=== PATIENT | male | born 1940 | race Caucasian/White ===

== ENCOUNTER → 2018-01-29 | Outpatient (CLI) | payer OTHER, BC ==
--- NOTE | 2018-01-29 09:44 | DIAGNOSTIC IMAGING REPORT ---
CHEST 2 VIEWS ROUTINE CLINICAL HISTORY: BILATERAL RALES dyspnea COMPARISON STUDY: No previous studies for comparison. FINDINGS: The bones soft tissues and hemidiaphragms are normal. The cardiomediastinal silhouette is normal. The lungs are clear. The pulmonary vasculature is normal. Mild cardiomegaly. IMPRESSION: Mild cardiomegaly. Otherwise negative study. The above report was generated using voice recognition software. It may contain grammatical, syntax or spelling errors. Electronically signed by: Power Green M.D. 01/29/2018 9:42 AM Dictated Date/Time: 01/29/2018 9:42 AM
== END | disposition home or self-care (01) ==
LOC: C.RAD1850 09:28
PROVIDERS: ATTEND Family Medicine
DX: R09.89 Other specified symptoms and signs involving the circulatory and respiratory systems (principal)

== ENCOUNTER 2022-03-01 19:12 | Inpatient (IN) ==
[2022-03-01 20:39] LABS: Basophils # (auto) 0.01 K/uL (0-0.2); Basophils % (auto) 0.2 %; Eosinophils # (auto) 0.23 K/uL (0-0.5); Eosinophils % (auto) 3.8 %; Hematocrit (blood only) 40.3 % (42-52); Hemoglobin 13.9 g/dL (14.0-18.0); Immature Granulocytes # (auto) 0.01 K/uL (0.00-0.02); Immature Granulocytes % (auto) 0.2 %; Lymphocytes # (auto) 2.33 K/uL (1.2-3.4); Mean Corpuscular Hemoglobin 30.6 pg (25-34); Mean Corpuscular Hgb Conc 34.5 g/dL (32-36); Mean Corpuscular Volume 88.8 fL (80-100); Mean Platelet Volume 9.8 fL (7.4-10.4); Monocytes # (auto) 0.54 K/uL (0.11-0.59); Monocytes % (auto) 8.8 %; Neutrophils # (auto) 3.01 K/uL (1.4-6.5); Platelet Count 170 K/uL (130-400); RDW Standard Deviation 42.3 fL (36.4-46.3); Red Blood Count 4.54 M/uL (4.7-6.1); White Blood Count 6.13 K/uL (4.8-10.8)
--- NOTE | 2022-03-01 20:47 | Emergency Department Note ---
History of Present Illness General Chief complaint: Abnormal Labs/Diagnostic Testing Stated complaint: ABNORMAL EKG Time Seen by Provider: 03/01/22 20:08 History of Present Illness 81-year-old male presents to the ED with a chief complaint of heart block. The patient was at his PCPs office for routine visit today. He was noted to have a heart block. He was sent to the hospital for evaluation. The patient denies any specific complaints. He denies any palpitations. He denies any shortness of breath. No chest pains. No lightheadedness or dizziness. I did speak with Dr. Lara, the patient's outpatient provider group, who stated that the EKG in the office showed a third-degree heart block. This reason the patient was sent here. Home Medications Medication Instructions Recorded Confirmed Type albuterol sulfate 90 mcg/actuation 2 puffs INHALATION Q4H PRN gm 06/10/19 03/01/22 History aerosol inhaler atorvastatin 10 mg tablet 10 mg PO DAILY tab 06/10/19 03/01/22 History esomeprazole magnesium 20 mg 20 mg PO DAILY PRN cap 06/10/19 03/01/22 History capsule,delayed release tadalafil 5 mg tablet 5 mg PO DAILY PRN tab 06/10/19 03/01/22 History tamsulosin 0.4 mg capsule 0.4 mg PO DAILY #30 cap 06/10/19 03/01/22 History ascorbic acid (vitamin C) 1,000 mg 1 g PO DAILY 03/01/22 03/01/22 History tablet (Vitamin C) aspirin 81 mg tablet,delayed 81 mg PO DAILY 03/01/22 03/01/22 History release (Aspirin Low Dose) cholecalciferol (vitamin D3) 125 125 mcg PO DAILY 03/01/22 03/01/22 History mcg (5,000 unit) tablet (Vitamin D3) coQ10 (ubiquinol) 200 mg capsule 200 mg PO DAILY 03/01/22 03/01/22 History triamterene 37.5 1 cap PO DAILY 03/01/22 03/01/22 History mg-hydrochlorothiazide 25 mg capsule vit C 250 mg-vit E 90 mg-zinc 40 1 tab PO BID 03/01/22 03/01/22 History mg-copper 1 [id number] capsule (PreserVision AREDS-2) Allergies Allergy/AdvReac Type Severity Reaction Status Date / Time animal dander Allergy Unknown Unknown Verified 03/01/22 20:44 bupropion Allergy Unknown Unknown Verified 03/01/22 20:44 citalopram [From Celexa] Allergy Unknown Unknown Verified 03/01/22 20:44 doxycycline Allergy Unknown Unknown Verified 03/01/22 20:44 iodine Allergy Unknown Unknown Verified 03/01/22 20:44 sildenafil [From Viagra] Allergy Unknown Unknown Verified 03/01/22 20:44 Sulfa (Sulfonamide Allergy Unknown Unknown Verified 03/01/22 20:44 Antibiotics) Past Med/Surg History Medical History (Updated 03/02/22 @ 00:28 by Juan Diego Paige DO) Elevated prostate specific antigen (PSA) Erectile dysfunction History of SCC (squamous cell carcinoma) of skin Hypertrophy of prostate Left ventricular hypertrophy Mitral valve disorder Family History (Updated 03/01/22 @ 22:11 by JOSÉ MIGUEL Daigle) Other Cancer Diabetes Dyslipidemia Hypertension Social History (Updated 03/01/22 @ 22:11 by JOSÉ MIGUEL Daigle) Smoking Status: Never smoker Hx Alcohol Use: Yes Alcohol type: wine Alcohol Intake Frequency: 2-3 x/Week Hx Substance Use: No Preferred Language: [place] Islander Feels Safe at Home: Yes Review of Systems A total of 10 systems reviewed and were otherwise negative Physical Exam Vital Signs Vital Signs - 24 hr 03/01/22 19:18 03/01/22 20:19 03/01/22 20:29 Temperature 36.8 C Temperature Source Temporal Artery Scan Pulse Rate 58 L 46 L Pulse Rate [Apical] 64 Pulse Rate from SpO2 Sensor 51 L Respiratory Rate 18 12 20 Respiratory Effort / Characteristics Non-Labored Non-Labored Spontaneous Respiratory Depth Normal Normal Respiratory Pattern Regular Blood Pressure 221/88 H Blood Pressure Mean 132 Blood Pressure Position Sitting Pulse Oximetry 97 95 96 Oxygen Delivery Method Room Air Room Air Sepsis Recent Fever Within 48 Hours No Sepsis New/Unexplained Change in Mental Status No Sepsis Action Taken by Nursing No Action Required 03/01/22 20:30 03/01/22 20:32 03/01/22 21:00 Temperature Temperature Source Pulse Rate 54 L 57 L 45 L Pulse Rate [Apical] Pulse Rate from SpO2 Sensor 52 L 53 L 47 L Respiratory Rate 14 14 19 Respiratory Effort / Characteristics Respiratory Depth Respiratory Pattern Blood Pressure 225/79 H 183/90 H Blood Pressure Mean 127 121 Blood Pressure Position Pulse Oximetry 95 93 95 Oxygen Delivery Method Sepsis Recent Fever Within 48 Hours Sepsis New/Unexplained Change in Mental Status Sepsis Action Taken by Nursing 03/01/22 21:01 Temperature Temperature Source Pulse Rate 49 L Pulse Rate [Apical] Pulse Rate from SpO2 Sensor 49 L Respiratory Rate 16 Respiratory Effort / Characteristics Respiratory Depth Respiratory Pattern Blood Pressure 183/90 H Blood Pressure Mean 121 Blood Pressure Position Pulse Oximetry 96 Oxygen Delivery Method Sepsis Recent Fever Within 48 Hours Sepsis New/Unexplained Change in Mental Status Sepsis Action Taken by Nursing CONSTITUTIONAL/VITAL SIGNS: Reviewed / noted above. GENERAL: Non-toxic in appearance. INTEGUMENTARY: Warm, dry, and [place]. HEAD: Normocephalic. EYES: without scleral icterus or trauma. ENT/OROPHARYNX: clear and moist. LYMPHADENOPATHY/NECK: Is supple without lymphadenopathy or meningismus. RESPIRATORY: Clear to auscultation bilaterally. No increased work of breathing. CARDIOVASCULAR: Regular rate and rhythm. GI/ABDOMEN: Soft and nontender. No organomegaly or pulsatile mass. EXTREMITIES: Warm and well perfused. BACK: No CVA tenderness. NEUROLOGICAL: Intact without focal deficits. PSYCHIATRIC: normal affect. MUSCULOSKELETAL: Normally developed with good muscle tone. TRIAGE NURSING DOCUMENTATION REVIEWED. Course Administered Medications Enoxaparin Sodium (Enoxaparin Inj 40 Mg/0.4 Ml Syr) 40 mg SQ Q24H YAJAIRA Stop: 04/01/22 00:00 Last Admin: 03/02/22 00:12 Dose: 40 mg Documented by: [id number] Medical Decision Making Differential Diagnosis The differential that was considered includes acute myocardial infarction, acute coronary syndrome, myocarditis, pericarditis, pericardial effusions /tamponade, esophageal perforation, thoracic aortic dissection, pulmonary embolism, pneumonia, pneumothorax, pancreatitis, shingles, acute cholecystitis, perforated abdominal viscus. Medical Records Attestation: I reviewed the patient's medical records. Home Medications Current Medication List: was personally reviewed by me Laboratory Data Attestation: I reviewed the patient's lab results. Result diagrams: 03/01/22 20:12 03/01/22 20:12 Lab Results 03/01/22 03/01/22 03/01/22 Range/Units 20:12 20:12 20:12 WBC 6.13 (4.8-10.8) K/uL RBC 4.54 L (4.7-6.1) M/uL Hgb 13.9 L (14.0-18.0) g/dL Hct 40.3 L (42-52) % MCV 88.8 (80-100) fL MCH 30.6 (25-34) pg MCHC 34.5 (32-36) g/dL RDW Std Deviation 42.3 (36.4-46.3) fL RDW Coeff of Phillip 13.0 (11.5-14.5) % Plt Count 170 (130-400) K/uL MPV 9.8 (7.4-10.4) fL Immature Gran % (Auto) 0.2 % Neut % (Auto) 49.0 % Lymph % (Auto) 38.0 % [place] % (Auto) 8.8 % Eos % (Auto) 3.8 % Baso % (Auto) 0.2 % Neut # (Auto) 3.01 (1.4-6.5) K/uL Lymph # (Auto) 2.33 (1.2-3.4) K/uL [place] # (Auto) 0.54 (0.11-0.59) K/uL Eos # (Auto) 0.23 (0-0.5) K/uL Baso # (Auto) 0.01 (0-0.2) K/uL Immature Gran # (Auto) 0.01 (0.00-0.02) K/uL Sodium 138 (136-145) mmol/L Potassium 3.5 (3.5-5.1) mmol/L Chloride 104 (98-107) mmol/L Carbon Dioxide 26 (21-32) mmol/L Anion Gap 8 (3-11) BUN 23 (6-23) mg/dl Creatinine 1.12 (0.6-1.4) mg/dl Est Cr Clr Drug Dosing 70.5 ml/min Est GFR ( Amer) 72.0 ml/min Est GFR (Non-Af Amer) 62.1 ml/min BUN/Creatinine Ratio 20.5 H (10-20) Glucose 90 (70-99(Fasting)) mg/dl Calcium 9.3 (8.5-10.1) mg/dl Total Bilirubin 0.8 (0.2-1.0) mg/dl AST 19 (13-39) U/L ALT 16 (7-52) U/L Alkaline Phosphatase 58 (34-104) U/L Troponin I High Sens 30.9 H Cancelled (0-20) pg/ml Total Protein 7.6 (6.0-8.3) gm/dl Albumin 4.4 (3.4-5.0) gm/dl Globulin 3.2 (2.5-4.0) gm/dl Albumin/Globulin Ratio 1.4 (0.9-2) TSH (0.300-4.500) uIu/ml Urine Color Urine Appearance (Clear) Urine pH (4.5-7.5) Ur Specific [place] (1.000-1.030) Urine Protein (Negative) Urine Glucose (UA) (Negative) Urine Ketones (Negative) Urine Blood (Negative) Urine Nitrite (Negative) Urine Bilirubin (Negative) Urine Urobilinogen (Negative) Ur Leukocyte Esterase (Negative) Lyme Disease IgG Ab (Negative) Lyme Disease IgM Ab (Negative) SARS-CoV-2, RNA, NAAT (NEGATIVE) 03/01/22 03/01/22 03/01/22 Range/Units 20:12 20:12 20:56 WBC (4.8-10.8) K/uL RBC (4.7-6.1) M/uL Hgb (14.0-18.0) g/dL Hct (42-52) % MCV (80-100) fL MCH (25-34) pg MCHC (32-36) g/dL RDW Std Deviation (36.4-46.3) fL RDW Coeff of Phillip (11.5-14.5) % Plt Count (130-400) K/uL MPV (7.4-10.4) fL Immature Gran % (Auto) % Neut % (Auto) % Lymph % (Auto) % [place] % (Auto) % Eos % (Auto) % Baso % (Auto) % Neut # (Auto) (1.4-6.5) K/uL Lymph # (Auto) (1.2-3.4) K/uL [place] # (Auto) (0.11-0.59) K/uL Eos # (Auto) (0-0.5) K/uL Baso # (Auto) (0-0.2) K/uL Immature Gran # (Auto) (0.00-0.02) K/uL Sodium (136-145) mmol/L Potassium (3.5-5.1) mmol/L Chloride (98-107) mmol/L Carbon Dioxide (21-32) mmol/L Anion Gap (3-11) BUN (6-23) mg/dl Creatinine (0.6-1.4) mg/dl Est Cr Clr Drug Dosing ml/min Est GFR ( Amer) ml/min Est GFR (Non-Af Amer) ml/min BUN/Creatinine Ratio (10-20) Glucose (70-99(Fasting)) mg/dl Calcium (8.5-10.1) mg/dl Total Bilirubin (0.2-1.0) mg/dl AST (13-39) U/L ALT (7-52) U/L Alkaline Phosphatase (34-104) U/L Troponin I High Sens (0-20) pg/ml Total Protein (6.0-8.3) gm/dl Albumin (3.4-5.0) gm/dl Globulin (2.5-4.0) gm/dl Albumin/Globulin Ratio (0.9-2) TSH 2.206 (0.300-4.500) uIu/ml Urine Color Urine Appearance (Clear) Urine pH (4.5-7.5) Ur Specific [place] (1.000-1.030) Urine Protein (Negative) Urine Glucose (UA) (Negative) Urine Ketones (Negative) Urine Blood (Negative) Urine Nitrite (Negative) Urine Bilirubin (Negative) Urine Urobilinogen (Negative) Ur Leukocyte Esterase (Negative) Lyme Disease IgG Ab Negative (Negative) Lyme Disease IgM Ab Negative (Negative) SARS-CoV-2, RNA, NAAT NEGATIVE (NEGATIVE) 03/01/22 Range/Units 21:44 WBC (4.8-10.8) K/uL RBC (4.7-6.1) M/uL Hgb (14.0-18.0) g/dL Hct (42-52) % MCV (80-100) fL MCH (25-34) pg MCHC (32-36) g/dL RDW Std Deviation (36.4-46.3) fL RDW Coeff of Phillip (11.5-14.5) % Plt Count (130-400) K/uL MPV (7.4-10.4) fL Immature Gran % (Auto) % Neut % (Auto) % Lymph % (Auto) % [place] % (Auto) % Eos % (Auto) % Baso % (Auto) % Neut # (Auto) (1.4-6.5) K/uL Lymph # (Auto) (1.2-3.4) K/uL [place] # (Auto) (0.11-0.59) K/uL Eos # (Auto) (0-0.5) K/uL Baso # (Auto) (0-0.2) K/uL Immature Gran # (Auto) (0.00-0.02) K/uL Sodium (136-145) mmol/L Potassium (3.5-5.1) mmol/L Chloride (98-107) mmol/L Carbon Dioxide (21-32) mmol/L Anion Gap (3-11) BUN (6-23) mg/dl Creatinine (0.6-1.4) mg/dl Est Cr Clr Drug Dosing ml/min Est GFR ( Amer) ml/min Est GFR (Non-Af Amer) ml/min BUN/Creatinine Ratio (10-20) Glucose (70-99(Fasting)) mg/dl Calcium (8.5-10.1) mg/dl Total Bilirubin (0.2-1.0) mg/dl AST (13-39) U/L ALT (7-52) U/L Alkaline Phosphatase (34-104) U/L Troponin I High Sens (0-20) pg/ml Total Protein (6.0-8.3) gm/dl Albumin (3.4-5.0) gm/dl Globulin (2.5-4.0) gm/dl Albumin/Globulin Ratio (0.9-2) TSH (0.300-4.500) uIu/ml Urine Color Yellow Urine Appearance Clear (Clear) Urine pH 7.0 (4.5-7.5) Ur Specific [place] 1.009 (1.000-1.030) Urine Protein Negative (Negative) Urine Glucose (UA) Negative (Negative) Urine Ketones Negative (Negative) Urine Blood Negative (Negative) Urine Nitrite Negative (Negative) Urine Bilirubin Negative (Negative) Urine Urobilinogen Negative (Negative) Ur Leukocyte Esterase Negative (Negative) Lyme Disease IgG Ab (Negative) Lyme Disease IgM Ab (Negative) SARS-CoV-2, RNA, NAAT (NEGATIVE) Imaging Data My Impression: This x-ray: Per my interpretation there is no acute disease. No pneumothorax or pneumonia. ECG Data Attestation: I personally reviewed and interpreted this ECG as follows: Additional Comments: Twelve-lead EKG: Per my interpretation shows a sinus rhythm at a rate of 64 with a secondary heart block type II versus a third-degree heart block with a narrow complex junctional type escape rhythm. No ST elevation. No PVCs. MDM Narrative 81-year-old male presents asymptomatic with concerns of second degree type II and third-degree heart block. The patient's blood work was unremarkable. Blood work was unremarkable. Chest x-ray did not show acute process. Patient will be seen by the hospitalist. Impression & Plan [place] type 2 second degree heart block Discharge Plan Visit Data Chief Complaint: Abnormal Labs/Diagnostic Testing Stated Complaint: ABNORMAL EKG ED Provider: Juan Diego Paige Discharge Problem: Mobitz type 2 second degree heart block Discharge Instructions Interventions: ED Discharge Assessment Last Done: 03/01/22 22:11
[2022-03-01 21:00] LABS: Albumin Globulin Ratio 1.4 (0.9-2); Albumin Level 4.4 gm/dl (3.4-5.0); BUN Creatinine Ratio 20.5 (10-20); Bilirubin,Total 0.8 mg/dl (0.2-1.0); Calcium 9.3 mg/dl (8.5-10.1); Creatinine Clr Calc Pharmacy 70.5 ml/min; Est GFR (Non-African American) 62.1 ml/min; Globulin 3.2 gm/dl (2.5-4.0); Potassium 3.5 mmol/L (3.5-5.1); Total Protein 7.6 gm/dl (6.0-8.3)
[2022-03-01 21:05] LABS: Troponin I High Sensitivity 30.9 pg/ml (0-20)
[2022-03-01 21:13] LABS: Lyme Ab IgG w/WB Rflx Negative (Negative); Lyme Ab IgM w/WB Rflx Negative (Negative)
--- NOTE | 2022-03-01 21:59 | History & Physical Report ---
Date of Service March 01, 2022 Assessment & Plan (1) Heart block: Plan: Heart block 2nd degree - appears type II at this time - HR 40-50 with narrow qrs complex - occasional junctional escape - Current BP acceptable- will tolerate elevated BP at this time as likely some compensation for lower HR - Denies any chest pain or angina type pain in the past - HSCTNI 39 initial evaluation - ECHO in am - NPO after midnight- Cardiology consulted - Lyme negative - TSH normal - AM Cortisol - Admit to PCU (2) Elevated troponin: Plan: HScTNI 39 with 2 hour reflex pending- - trend through PM- no ST changes noted - however last ECG on file is from 2009 - Pending trend with next troponin to guide therapy overnight (3) Ascending aortic aneurysm: Plan: Last imaged in 2019 - continue with BP control following evaluation for HB - Continue statin - re-image when appropriate- inpatient or outpatient (4) Hypertension: Plan: As above- allow for some degree of hypertension with HB - continue with his triamterene/HCTZ (5) Hyperlipidemia: Plan: Continue with Atorvastatin 10mg daily - lipid panel in am - adjust based on risk - hold coq10 (6) BPH (benign prostatic hyperplasia): Plan: States symptoms controlled - continue with tamsulosin - no PSA in system- continue to follow up with PCP (7) GERD (gastroesophageal reflux disease): Plan: Continue with esomeprazole 20mg PO daily History of Present Illness Primary Care Provider: Chirag Ward MD 81 YOM with medical history of: Ascending thoracic aorta (4.3 2018-4.2 2017), HLD, HTN, LVH, mild MR, obesity, BPH. Patient comes in today referred from his PCP for concern of bradycardia/heart block. Patient went to his PCP (Dr. Ward) for wellness check, where he was noted to have HR in the 40s, ECG at that time was concern for high grade block. He was sent to the EMD. In the EMD the patient had routine labs performed to include HScTNI and Lyme IGG/IGM. He had an ECG performed with appears 2nd degree type II. He remains asymptomatic, denies any dizziness, chest pain, or dyspnea. He states that he was out today mowing grass and on his tractor around [place] without any symptoms. He is also active outdoors and denies any anginal or cardiac symptoms. His Lyme is negative and HScTNI is 39- he is warm and well perfused with no other evidence of organ dysfunction, pulses are strong. He denies any new medications or any herbal supplements. He is not on rate reducing agents. Renal function is normal TSH normal. Will admit to PCU- chest Xray, send repeat 2 hour HScTNI and am HScTNI and AM cortisol. Cardiology consulted. NPO after midnight He did follow with Cardiology back in [address] Marrufo for his Aneurysm, and palpitations HTN. His last ECHO was in 2019 with EF 60-65%, LVH and no wall abnormalities. Last ECG on file is 2009 with some inverted P waves and ectopic atrial beats noted. COVID test on admission is: NEGATIVE Allergies Allergy/AdvReac Type Severity Reaction Status Date / Time animal dander Allergy Unknown Unknown Verified 03/01/22 20:44 bupropion Allergy Unknown Unknown Verified 03/01/22 20:44 citalopram [From Celexa] Allergy Unknown Unknown Verified 03/01/22 20:44 doxycycline Allergy Unknown Unknown Verified 03/01/22 20:44 iodine Allergy Unknown Unknown Verified 03/01/22 20:44 sildenafil [From Viagra] Allergy Unknown Unknown Verified 03/01/22 20:44 Sulfa (Sulfonamide Allergy Unknown Unknown Verified 03/01/22 20:44 Antibiotics) Home Medications Medication Instructions Recorded Confirmed Type albuterol sulfate 90 mcg/actuation 2 puffs INHALATION Q4H PRN gm 06/10/19 03/01/22 History aerosol inhaler atorvastatin 10 mg tablet 10 mg PO DAILY tab 06/10/19 03/01/22 History esomeprazole magnesium 20 mg 20 mg PO DAILY PRN cap 06/10/19 03/01/22 History capsule,delayed release tadalafil 5 mg tablet 5 mg PO DAILY PRN tab 06/10/19 03/01/22 History tamsulosin 0.4 mg capsule 0.4 mg PO DAILY #30 cap 06/10/19 03/01/22 History ascorbic acid (vitamin C) 1,000 mg 1 g PO DAILY 03/01/22 03/01/22 History tablet (Vitamin C) aspirin 81 mg tablet,delayed 81 mg PO DAILY 03/01/22 03/01/22 History release (Aspirin Low Dose) cholecalciferol (vitamin D3) 125 125 mcg PO DAILY 03/01/22 03/01/22 History mcg (5,000 unit) tablet (Vitamin D3) coQ10 (ubiquinol) 200 mg capsule 200 mg PO DAILY 03/01/22 03/01/22 History triamterene 37.5 1 cap PO DAILY 03/01/22 03/01/22 History mg-hydrochlorothiazide 25 mg capsule vit C 250 mg-vit E 90 mg-zinc 40 1 tab PO BID 03/01/22 03/01/22 History mg-copper 1 [id number] capsule (PreserVision AREDS-2) Past Med/Surg History Medical History (Updated 03/02/22 @ 00:28 by Juan Diego Paige DO) Elevated prostate specific antigen (PSA) Erectile dysfunction History of SCC (squamous cell carcinoma) of skin Hypertrophy of prostate Left ventricular hypertrophy Mitral valve disorder Family History (Updated 03/01/22 @ 22:11 by JOSÉ MIGUEL Daigle) Other Cancer Diabetes Dyslipidemia Hypertension Social History (Updated 03/01/22 @ 22:11 by JOSÉ MIGUEL Daigle) Smoking Status: Never smoker Second Hand Exposure: No; Hx Alcohol Use: Yes Alcohol type: wine Alcohol Intake Frequency: 2-3 x/Week Hx Substance Use: No Preferred Language: Chinese Beliefs That Will Affect Care: None Current Living Situation: Spouse Feels Safe at Home: Yes Review of Systems Review of Systems: REVIEW OF SYSTEMS: Constitutional: No fever, sweats or chills Eyes: No diplopia, no worsening or blurred vision ENT: normal hearing, no trouble swallowing Respiratory: No cough, sputum, dyspnea at rest or on exertion Cardiovascular: No chest pain, tightness or palpitations Abdomen: No pain, nausea, vomiting, diarrhea or constipation Musculoskeletal: No joint pain, calf pain, swelling Neurologic: No weakness, numbness/tingling, or balance problems Psychiatric: No anxiety or depression Skin: No rash or itch Physical Exam Physical Exam: PHYSICAL EXAM: General: awake, alert, no apparent distress Head: Normocephalic, atraumatic ENT: PERRL, EOMI, no pharyngeal exudate, mucous membranes moist Neuro: AAO x 3, speech clear and appropriate, strength intact bilaterally 5/5, sensation intact and equal all extremities and dermatomes, no pronator drift Chest: equal rise and fall of the chest, no accessory muscle use, no heaves or thrills, Clear to auscultation, on room air, Cardiac: Regular rate and rhythm, telemetry reviewed- 2nd degree heart block, some junctional escape beats, skin warm dry, cap refill <3 seconds, peripheral pulses +2 no JVD, no edema GI: NABS x 4 quadrants, soft, nontender to palpation, no rebound, guarding or tenderness : Spontaneously voiding, no pain, no CVA tenderness, Extremities: Normal inspection, no peripheral edema or erythema, calfs nontender to palpation Psych: Normal mood and affect Skin: no rash or erythema Results & Data Results & Data ([facility]) Vital Signs (Past 12 Hours) Vital Signs Temp Pulse Pulse Resp BP Pulse Ox 03/01/22 21:00 45 L 19 183/90 H 95 03/01/22 20:32 57 L 14 225/79 H 93 03/01/22 20:30 54 L 14 95 03/01/22 20:29 46 L 20 96 03/01/22 20:19 64 12 95 03/01/22 19:18 36.8 C 58 L 18 221/88 H 97 Laboratory Results Abnormal lab results 03/01/22 03/01/22 Range/Units 20:12 20:12 RBC 4.54 L (4.7-6.1) M/uL Hgb 13.9 L (14.0-18.0) g/dL Hct 40.3 L (42-52) % BUN/Creatinine Ratio 20.5 H (10-20) Troponin I High Sens 30.9 H (0-20) pg/ml Diagnostic Findings CXR pending on admission Medications Administered Home Medications albuterol sulfate 90 mcg/actuation aerosol inhaler 2 puffs INHALATION Q4H PRN gm 06/10/19 [History Confirmed 03/01/22] atorvastatin 10 mg tablet 10 mg PO DAILY tab 06/10/19 [History Confirmed 03/01/22] esomeprazole magnesium 20 mg capsule,delayed release 20 mg PO DAILY PRN cap 06/10/19 [History Confirmed 03/01/22] tadalafil 5 mg tablet 5 mg PO DAILY PRN tab 06/10/19 [History Confirmed 03/01/22] tamsulosin 0.4 mg capsule 0.4 mg PO DAILY #30 cap 06/10/19 [History Confirmed 03/01/22] ascorbic acid (vitamin C) 1,000 mg tablet (Vitamin C) 1 g PO DAILY 03/01/22 [History Confirmed 03/01/22] aspirin 81 mg tablet,delayed release (Aspirin Low Dose) 81 mg PO DAILY 03/01/22 [History Confirmed 03/01/22] cholecalciferol (vitamin D3) 125 mcg (5,000 unit) tablet (Vitamin D3) 125 mcg PO DAILY 03/01/22 [History Confirmed 03/01/22] coQ10 (ubiquinol) 200 mg capsule 200 mg PO DAILY 03/01/22 [History Confirmed 03/01/22] triamterene 37.5 mg-hydrochlorothiazide 25 mg capsule 1 cap PO DAILY 03/01/22 [History Confirmed 03/01/22] vit C 250 mg-vit E 90 mg-zinc 40 mg-copper 1 [id number] capsule (PreserVision AREDS-2) 1 tab PO BID 03/01/22 [History Confirmed 03/01/22] ECG Additional Comments: Sinus bradycardia with marked sinus arrhythmia with 1st degree A-V block Non- specific intra-ventricular conduction block Abnormal ECG When compared with ECG of 25-FEB-2010 14:24, Sinus rhythm has replaced Ectopic atrial rhythm QRS duration has increased Nonspecific T wave abnormality, improved in Inferior leads Code Status & VTE Plan Code Status CODE: FULL VTE: SCDS, Lovenox 40mg subq daily VTE Prophylaxis Plan VTE Prophylaxis will be ordered: Yes Supervising Physician Co-Signing Physician Notes Patient seen and examined, chart reviewed, case discussed with JOSÉ MIGUEL Bethea and I agree with the assessment and plan as above. In brief, patient is a 81yo male sent from PCP for concern for high degree AV block, bradycardic with HR in 40's. He is asymptomatic - denies chest pain, palpitations, SOB. Denies dizziness, syncope, confusion On exam his is afebrile, HD stable, bradycardic, NAD SKin - warm, pink, no cyanosis HEENT - NC/AT, PERRL, Neck supple Heart - +S1/S2, bradycardic Lungs - CTA Abd - +BS, soft, NT/ND Ext - No edema Labs and images above. Troponin increased 30.9 -->170 Assessment/Plan -Heparin gtt -Trend troponin to peak -Cardiology consultation appreciated - ?catheterization with possible pacer -Monitor for symptoms, evidence of faiure or poor perfusion with bradycardia -Remainder as above PG Care Time/CCT Total # of Minutes Spent Total Time Spent with Patient: Total time spent is greater than 50% in coordination of care (as documented) at patient's floor/unit and/or counseling patient: Coding Level of Care Code 57104 Initial Inpt Care Lvl 3 Diagnoses Heart block I45.9 Hypertension I10 Hyperlipidemia E78.5 BPH (benign prostatic hyperplasia) N40.0 GERD (gastroesophageal reflux disease) K21.9 Elevated troponin R77.8 Ascending aortic aneurysm I71.2
[2022-03-01 22:20] LABS: Appearance Urine Clear (Clear); Bilirubin Urine Negative (Negative); Blood Urine Negative (Negative); Color Urine Yellow; Glucose Urine UA Negative (Negative); Ketones Urine Negative (Negative); Leukocyte Esterase Urine Negative (Negative); Nitrite Urine Negative (Negative); Protein Urine Negative (Negative); Specific Gravity Urine 1.009 (1.000-1.030); Urobilinogen Urine Negative (Negative)
[2022-03-01] MEDS ORDERED: PANTOprazole 40 MG TAB PO PRN (22:21)
[2022-03-01] MEDS ORDERED: ALBUTEROL HFA 8 GM INHALER INH PRN (22:21)
[2022-03-02] MEDS: ENOXAPARIN INJ 40 MG/0.4 ML SYR SQ SCH ×2 (00:12→21:19)
[2022-03-02] MEDS ORDERED: Heparin IV Adult Wt-Based Standard WITH Bolus Protocol IV SCH (01:18)
[2022-03-02] MEDS ORDERED: Heparin IV Adult Wt-Based Standard *NO* Bolus Protocol IV SCH (01:20)
[2022-03-02] MEDS ORDERED: HEPARIN SOD (PORCINE) 1000 UNIT/ML IV ONE (01:28)
[2022-03-02] MEDS ORDERED: HEPARIN SODIUM/DEXTROSE 25,000 UNITS/500 ML BAG IV SCH ×2 (01:30→01:45)
[2022-03-02 02:07] LABS: Partial Thromboplastin Time 26.8 Seconds (21.0-31.0); Prothrombin Time 10.7 Seconds (9.0-12.0)
[2022-03-02 04:59] LABS: Basophils # (auto) 0.02 K/uL (0-0.2); Basophils % (auto) 0.3 %; Eosinophils # (auto) 0.27 K/uL (0-0.5); Hematocrit (blood only) 39.8 % (42-52); Hemoglobin 13.3 g/dL (14.0-18.0); Immature Granulocytes # (auto) 0.01 K/uL (0.00-0.02); Immature Granulocytes % (auto) 0.1 %; Lymphocytes # (auto) 2.34 K/uL (1.2-3.4); Lymphocytes % (auto) 34.4 %; Mean Corpuscular Hemoglobin 29.6 pg (25-34); Mean Corpuscular Hgb Conc 33.4 g/dL (32-36); Mean Corpuscular Volume 88.6 fL (80-100); Mean Platelet Volume 10.3 fL (7.4-10.4); Monocytes % (auto) 8.8 %; Neutrophils # (auto) 3.57 K/uL (1.4-6.5); Neutrophils % (auto) 52.4 %; Platelet Count 189 K/uL (130-400); RDW Coefficient of Variation 13.1 % (11.5-14.5); Red Blood Count 4.49 M/uL (4.7-6.1); White Blood Count 6.81 K/uL (4.8-10.8)
[2022-03-02 05:11] LABS: BUN Creatinine Ratio 19.4 (10-20); Creatinine Clr Calc Pharmacy 73.1 ml/min; Est GFR (African American) 75.3 ml/min; Est GFR (Non-African American) 64.9 ml/min; Magnesium 2.1 mg/dl (1.7-2.4); Potassium 3.8 mmol/L (3.5-5.1)
--- NOTE | 2022-03-02 06:17 | Billing Data ---
Date of Service March 01, 2022 Coding Level of Care Code 39361 Initial Inpt Care Lvl 3
--- NOTE | 2022-03-02 07:05 | XRay Report ---
XR chest 1V portable HISTORY: 81 years-old Male evaluate for pulmonary/cardiac abnormalities acute shortness of breath COMPARISON: Chest radiographs 01/29/2018 TECHNIQUE: Portable AP view of the chest FINDINGS: The cardiac silhouette is enlarged. No pneumothorax, pleural effusion, airspace consolidation or over t pulmonary edema. Degenerative changes of the shoulders and spine. IMPRESSION: Cardiomegaly without acute process. ACT 112: Negative or not required by law. The above report was generated using voice recognition software. It may contain grammatical, syntax o r spelling errors. Electronically signed by: Ferdinand Gibbons M.D. 03/02/2022 7:04 AM
[2022-03-02] MEDS: ATORVASTATIN 10 MG TAB PO SCH (08:17)
[2022-03-02] MEDS: ASPIRIN 81 MG ECTAB PO SCH (08:17)
[2022-03-02] MEDS: CHOLECALCIFEROL 5,000 UNITS 125 MCG TAB PO SCH (08:17)
[2022-03-02] MEDS: TRIAMTERENE/HCTZ 37.5/25MG CAP PO SCH (08:17)
[2022-03-02 08:50] LABS: Partial Thromboplastin Ratio 2.1
[2022-03-02 08:55] LABS: Partial Thromboplastin Time 57.6 Seconds (21.0-31.0)
--- NOTE | 2022-03-02 09:28 | Hospitalist Progress Note ---
Date of Service March 02, 2022 Assessment & Plan (1) Heart block: Plan: Heart block 2nd degree - appears type II at this time - HR 40-50 with narrow qrs complex - occasional junctional escape - Current BP acceptable- will tolerate elevated BP at this time as likely some compensation for lower HR - Denies any chest pain or angina type pain in the past - HSCTNI 39 initial evaluation, 101 6 hours later, 171 6 hours thereafter, continue to trend - ECHO pending - NPO after midnight- Cardiology consulted for evaluation of need for pacemaker. - Lyme negative - TSH normal - AM Cortisol within normal limits - Admit to PCU (2) Elevated troponin: Plan: HScTNI 39 with 2 hour reflex pending- -Could be secondary to bradycardia versus elevated blood pressures in the 190s systolic, at the time of writing this note has not peaked as of yet. Continue to trend - trend through PM- no ST changes noted - however last ECG on file is from 2009 (3) Ascending aortic aneurysm: Plan: Last imaged in 2019 - continue with BP control following evaluation for HB - Continue statin - re-image when appropriate- inpatient or outpatient (4) Hypertension: Plan: As above- allow for some degree of hypertension with HB - continue with his triamterene/HCTZ -Await cardiology recommendations as may not want to start extra blood pressure control prior to any procedure they may perform (5) Hyperlipidemia: Plan: Continue with Atorvastatin 10mg daily - lipid panel in am -lipids are well controlled - hold coq10 (6) BPH (benign prostatic hyperplasia): Plan: States symptoms controlled - continue with tamsulosin - no PSA in system- continue to follow up with PCP (7) GERD (gastroesophageal reflux disease): Plan: Continue with esomeprazole 20mg PO daily Admission and Anticipated Discharge Date Admission Date: March 01, 2022 Supervising Physician Co-Signing Physician Notes I also saw the patient and confirmed platt portions of the history and the physical examination. I agree with the impression and plan as noted in the resident documentation. I also personally discussed the case with the drop board man. Pleasant and very active 81-year-old male who was seen for an annual wellness visit in the outpatient office yesterday and noted to be in complete heart block with ventricular escape rhythm with a rate of 32. Surprisingly, the patient really had no symptoms related to his profound bradycardia; he had denied syncope/presyncope, lightheadedness, dizziness, orthostatic symptoms, chest pain, or shortness of breath. Since his admission, the patient has remained asymptomatic. In reviewing telemetry, his rate has varied from the high 20s to the high 50s at rest. Exam 146/70, 52, 18, afebrile, 96% room air Pleasant no acute distress Heart is bradycardic with some Irregularlity Lungs are clear with nonlabored respirations Data Hemoglobin 13.3, platelet count 189. High sensitive troponin 170.5 Glucose 105 BUN 21, creatinine 1.08 Potassium 3.8 Lyme negative Chest x-ray showed cardiomegaly without acute process Transthoracic echocardiogram is pending Heart block Hypertension Elevated troponin Aneurysm of the ascending aorta It is surprising that the patient does not have significant symptoms given his profound bradycardia. He is quite active, spending quite a bit of time outdoors working on his property. Cardiology has been consulted for consideration of a pacemaker. His blood pressure is quite elevated, although some this may be compensatory. I will have to review his outpatient chart although I do not remember him being as hypertensive at baseline as he is now. Subjective Patient seen at bedside this morning. No acute events reported overnight. Nurse having difficulty with getting blood pressure upon arrival. Patient reports that he has not been having any symptoms that he is aware of in relation to his slow heart rate. Was not aware that it was actually slow until seeing his primary care provider yesterday. Denies any chest pain, shortness of breath, abdominal pain/nausea/vomiting, or headache. Has no other complaints at this time. Review of Systems Review of Systems: All systems reviewed & are unremarkable except as noted in HPI & below Physical Exam Constitutional: WD/WN, vitals as above Eyes: PERRL, conjunctivae normal, anicteric sclerae Neck: trachea midline, no thyromegaly Respiratory: normal respiratory effort, lungs clear to auscultation Cardiovascular: Rate/Rhythm: regular rhythm and + bradycardic Heart Sounds: normal S1 and normal S2 Vessels: no JVD Extremities: no edema Gastrointestinal (Abdomen): normal bowel sounds, soft, nontender, no hepatosplenomegaly Musculoskeletal: Head/Neck/Chest: normocephalic and head atraumatic Skin: no rashes, warm and dry Neurologic: moves all extremities Psychiatric: A+Ox3, euthymic affect Results & Data Results & Data ([facility]) Vital Signs (Past 12 Hours) Vital Signs Temp Pulse Pulse Resp BP BP Pulse Ox 03/02/22 07:36 37.3 C 49 L 20 199/67 H 95 03/02/22 04:46 36.8 C 47 L 16 183/76 H 95 03/02/22 00:31 44 L 03/01/22 22:52 37.2 C 49 L 18 207/97 H 96 03/01/22 22:01 54 L 14 187/96 H 96 03/01/22 22:00 45 L 17 95 03/01/22 21:50 52 L 21
--- NOTE | 2022-03-02 09:57 | XCELERA ---
[id number]
[2022-03-02] MEDS ORDERED: VANCOMYCIN HCL 1000MG/20ML VIAL ONE (11:57)
[2022-03-02] MEDS ORDERED: LIDOCAINE 1% LOCAL 20 ML VIAL ONE (11:57)
[2022-03-02] MEDS ORDERED: WATER, STERILE FOR INJ 10 ML VIAL ONE (11:57)
[2022-03-02] MEDS ORDERED: BUPIVACAINE 0.25% 30 ML VIAL ONE (11:57)
[2022-03-02] MEDS ORDERED: ceFAZolin 330 MG/ML 1 GM VIAL ONE (11:58)
[2022-03-02] MEDS ORDERED: MIDAZOLAM HCL 5 MG/ML 1 ML VIAL ONE (11:58)
[2022-03-02] MEDS ORDERED: fentaNYL citrate 100 MCG/2 ML VIAL ONE (11:58)
--- NOTE | 2022-03-02 12:18 | Cardiology Consultation ---
Date of Consultation March 02, 2022 Assessment & Plan (1) Heart block: (2) Hypertension: (3) Elevated troponin: (4) Ascending aortic aneurysm: 1. Complete heart block: Most of the time the patient demonstrates evidence Mobitz 1 conduction. There is occasional 2-1 conduction but he does have an EKG performed in the outpatient setting where he has complete heart block. Despite his absence significant symptoms, I think this represents unstable conduction disease and he was advised to undergo implantation of a permanent pacemaker. I did describe the risks benefits and alternatives to the patient and will plan on proceeding today. 2. Hypertension: Patient markedly hypertensive during this hospitalization. 3. Elevated troponin: I do not believe the patient has had a recent acute coronary event. I believe his elevated biomarkers are likely related to severe hypertension. 4. Aortic aneurysm: Longstanding. He will benefit from more aggressive blood pressure control and likely addition of beta blockade once his pacemaker is in place. History of Present Illness Reason for Consultation: Heart block, bradycardia Requesting Physician: Neema Attending Physician: Kerri Hughes, History of Present Illness The patient is a 81-year-old gentleman with a history of a thoracic aortic aneurysm and hypertension who presented to his primary care's office yesterday for a wellness evaluation. He was noted to have bradycardia in the EKG obtained at that time was consistent with complete heart block. The patient actually left the appointment and was at home he was contacted by the office and asked to return to the emergency room. The patient had not been symptomatic at any time leading up to his appointment or subsequently. He has not been experiencing any symptoms of exertional intolerance, dizziness or lightheadedness, dyspnea or chest pain. He has been aware of some skipped beats over the years. This is not changed recently. 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 He does not report any limitations or new symptoms associated with his routine activity. Allergies Allergy/AdvReac Type Severity Reaction Status Date / Time animal dander Allergy Unknown Unknown Verified 03/01/22 20:44 bupropion Allergy Unknown Unknown Verified 03/01/22 20:44 citalopram [From Celexa] Allergy Unknown Unknown Verified 03/01/22 20:44 doxycycline Allergy Unknown Unknown Verified 03/01/22 20:44 iodine Allergy Unknown Unknown Verified 03/01/22 20:44 sildenafil [From Viagra] Allergy Unknown Unknown Verified 03/01/22 20:44 Sulfa (Sulfonamide Allergy Unknown Unknown Verified 03/01/22 20:44 Antibiotics) Home Medications Medication Instructions Recorded Confirmed Type albuterol sulfate 90 mcg/actuation 2 puffs INHALATION Q4H PRN gm 06/10/19 03/01/22 History aerosol inhaler atorvastatin 10 mg tablet 10 mg PO DAILY tab 06/10/19 03/01/22 History esomeprazole magnesium 20 mg 20 mg PO DAILY PRN cap 06/10/19 03/01/22 History capsule,delayed release tadalafil 5 mg tablet 5 mg PO DAILY PRN tab 06/10/19 03/01/22 History tamsulosin 0.4 mg capsule 0.4 mg PO DAILY #30 cap 06/10/19 03/01/22 History ascorbic acid (vitamin C) 1,000 mg 1 g PO DAILY 03/01/22 03/01/22 History tablet (Vitamin C) aspirin 81 mg tablet,delayed 81 mg PO DAILY 03/01/22 03/01/22 History release (Aspirin Low Dose) cholecalciferol (vitamin D3) 125 125 mcg PO DAILY 03/01/22 03/01/22 History mcg (5,000 unit) tablet (Vitamin D3) coQ10 (ubiquinol) 200 mg capsule 200 mg PO DAILY 03/01/22 03/01/22 History triamterene 37.5 1 cap PO DAILY 03/01/22 03/01/22 History mg-hydrochlorothiazide 25 mg capsule vit C 250 mg-vit E 90 mg-zinc 40 1 tab PO BID 03/01/22 03/01/22 History mg-copper 1 [id number] capsule (PreserVision AREDS-2) Patient History Medical History (Updated 03/02/22 @ 00:28 by Juan Diego Paige DO) Elevated prostate specific antigen (PSA) Erectile dysfunction History of SCC (squamous cell carcinoma) of skin Hypertrophy of prostate Left ventricular hypertrophy Mitral valve disorder Family History (Updated 03/01/22 @ 22:11 by JOSÉ MIGUEL Daigle) Other Cancer Diabetes Dyslipidemia Hypertension Social History (Updated 03/01/22 @ 22:11 by JOSÉ MIGUEL Daigle) Smoking Status: Never smoker Second Hand Exposure: No; Hx Alcohol Use: Yes Alcohol type: wine Alcohol Intake Frequency: 2-3 x/Week Hx Substance Use: No Preferred Language: Monegasque Beliefs That Will Affect Care: None Current Living Situation: Spouse Feels Safe at Home: Yes Assistive Devices: None Review of Systems Review of Systems: Per HPI. No difficulty sleeping. No orthopnea or paroxysmal nocturnal dyspnea. No swelling in lower extremities. Physical Exam Physical Exam: The patient is alert and oriented. Mood and affect appeared normal. He answered all questions appropriately. HEENT: Pupils are equal and reactive to light and accommodation. Extraocular movements are intact. The sclerae are anicteric. Neuro: Cranial nerves intact Lungs: Clear to auscultation bilaterally. He has good air movement without use of accessory muscles. No rales wheezes or rhonchi. Cardiac: Heart demonstrates a regular rate and rhythm. Normal S1 and S2. Soft holosystolic murmur. Pulses: The patient has palpable radial pulses bilaterally that are equal in intensity Extremities: There was no evidence of hypoperfusion. There is no cyanosis or clubbing. There is no edema. Skin: I did not appreciate any rashes on examination today. Results & Data ([facility]) Vital Signs (Past 12 Hours) Vital Signs Temp Pulse Pulse Resp BP Pulse Ox 03/02/22 11:51 37.1 C 57 L 18 210/83 H 96 03/02/22 07:36 37.3 C 49 L 20 199/67 H 95 03/02/22 04:46 36.8 C 47 L 16 183/76 H 95 03/02/22 00:31 44 L Laboratory Results Abnormal Lab Results 03/01/22 03/01/22 03/01/22 20:12 20:12 20:12 WBC 6.13 RBC 4.54 L Hgb 13.9 L Hct 40.3 L MCV 88.8 MCH 30.6 MCHC 34.5 RDW Std Deviation 42.3 RDW Coeff of Phillip 13.0 Plt Count 170 MPV 9.8 Immature Gran % (Auto) 0.2 Neut % (Auto) 49.0 Lymph % (Auto) 38.0 [place] % (Auto) 8.8 Eos % (Auto) 3.8 Baso % (Auto) 0.2 Neut # (Auto) 3.01 Lymph # (Auto) 2.33 [place] # (Auto) 0.54 Eos # (Auto) 0.23 Baso # (Auto) 0.01 Immature Gran # (Auto) 0.01 PT INR APTT PTT Ratio Sodium 138 Potassium 3.5 Chloride 104 Carbon Dioxide 26 Anion Gap 8 BUN 23 Creatinine 1.12 Est Cr Clr Drug Dosing 70.5 Est GFR ( Amer) 72.0 Est GFR (Non-Af Amer) 62.1 BUN/Creatinine Ratio 20.5 H Glucose 90 POC Glucose Calcium 9.3 Magnesium Total Bilirubin 0.8 AST 19 ALT 16 Alkaline Phosphatase 58 Troponin I High Sens 30.9 H Cancelled Total Protein 7.6 Albumin 4.4 Globulin 3.2 Albumin/Globulin Ratio 1.4 Triglycerides Cholesterol LDL Cholesterol, Calc VLDL Cholesterol, Calc HDL Cholesterol Cholesterol/HDL Ratio TSH Cortisol AM Sample Urine Color Urine Appearance Urine pH Ur Specific [place] Urine Protein Urine Glucose (UA) Urine Ketones Urine Blood Urine Nitrite Urine Bilirubin Urine Urobilinogen Ur Leukocyte Esterase Lyme Disease IgG Ab Lyme Disease IgM Ab SARS-CoV-2, RNA, NAAT 03/01/22 03/01/22 03/01/22 20:12 20:12 20:12 WBC RBC Hgb Hct MCV MCH MCHC RDW Std Deviation RDW Coeff of Phillip Plt Count MPV Immature Gran % (Auto) Neut % (Auto) Lymph % (Auto) [place] % (Auto) Eos % (Auto) Baso % (Auto) Neut # (Auto) Lymph # (Auto) [place] # (Auto) Eos # (Auto) Baso # (Auto) Immature Gran # (Auto) PT 10.7 INR 1.0 APTT 26.8 PTT Ratio 1.0 Sodium Potassium Chloride Carbon Dioxide Anion Gap BUN Creatinine Est Cr Clr Drug Dosing Est GFR ( Amer) Est GFR (Non-Af Amer) BUN/Creatinine Ratio Glucose POC Glucose Calcium Magnesium Total Bilirubin AST ALT Alkaline Phosphatase Troponin I High Sens Total Protein Albumin Globulin Albumin/Globulin Ratio Triglycerides Cholesterol LDL Cholesterol, Calc VLDL Cholesterol, Calc HDL Cholesterol Cholesterol/HDL Ratio TSH 2.206 Cortisol AM Sample Urine Color Urine Appearance Urine pH Ur Specific [place] Urine Protein Urine Glucose (UA) Urine Ketones Urine Blood Urine Nitrite Urine Bilirubin Urine Urobilinogen Ur Leukocyte Esterase Lyme Disease IgG Ab Negative Lyme Disease IgM Ab Negative SARS-CoV-2, RNA, NAAT 03/01/22 03/01/22 03/01/22 20:56 21:44 22:55 WBC RBC Hgb Hct MCV MCH MCHC RDW Std Deviation RDW Coeff of Phillip Plt Count MPV Immature Gran % (Auto) Neut % (Auto) Lymph % (Auto) [place] % (Auto) Eos % (Auto) Baso % (Auto) Neut # (Auto) Lymph # (Auto) [place] # (Auto) Eos # (Auto) Baso # (Auto) Immature Gran # (Auto) PT INR APTT PTT Ratio Sodium Potassium Chloride Carbon Dioxide Anion Gap BUN Creatinine Est Cr Clr Drug Dosing Est GFR ( Amer) Est GFR (Non-Af Amer) BUN/Creatinine Ratio Glucose POC Glucose Calcium Magnesium Total Bilirubin AST ALT Alkaline Phosphatase Troponin I High Sens 100.9 H* D Total Protein Albumin Globulin Albumin/Globulin Ratio Triglycerides Cholesterol LDL Cholesterol, Calc VLDL Cholesterol, Calc HDL Cholesterol Cholesterol/HDL Ratio TSH Cortisol AM Sample Urine Color Yellow Urine Appearance Clear Urine pH 7.0 Ur Specific [place] 1.009 Urine Protein Negative Urine Glucose (UA) Negative Urine Ketones Negative Urine Blood Negative Urine Nitrite Negative Urine Bilirubin Negative Urine Urobilinogen Negative Ur Leukocyte Esterase Negative Lyme Disease IgG Ab Lyme Disease IgM Ab SARS-CoV-2, RNA, NAAT NEGATIVE 03/02/22 03/02/22 03/02/22 04:09 04:09 04:09 WBC 6.81 RBC 4.49 L Hgb 13.3 L Hct 39.8 L MCV 88.6 MCH 29.6 MCHC 33.4 RDW Std Deviation 43.0 RDW Coeff of Phillip 13.1 Plt Count 189 MPV 10.3 Immature Gran % (Auto) 0.1 Neut % (Auto) 52.4 Lymph % (Auto) 34.4 [place] % (Auto) 8.8 Eos % (Auto) 4.0 Baso % (Auto) 0.3 Neut # (Auto) 3.57 Lymph # (Auto) 2.34 [place] # (Auto) 0.60 H Eos # (Auto) 0.27 Baso # (Auto) 0.02 Immature Gran # (Auto) 0.01 PT INR APTT PTT Ratio Sodium 139 Potassium 3.8 Chloride 105 Carbon Dioxide 27 Anion Gap 7 BUN 21 Creatinine 1.08 Est Cr Clr Drug Dosing 73.1 Est GFR ( Amer) 75.3 Est GFR (Non-Af Amer) 64.9 BUN/Creatinine Ratio 19.4 Glucose 105 H POC Glucose Calcium 9.0 Magnesium 2.1 Total Bilirubin AST ALT Alkaline Phosphatase Troponin I High Sens 170.5 H* D Total Protein Albumin Globulin Albumin/Globulin Ratio Triglycerides 96 Cholesterol 158 LDL Cholesterol, Calc 99 VLDL Cholesterol, Calc 19 HDL Cholesterol 40 Cholesterol/HDL Ratio 4.0 TSH Cortisol AM Sample Urine Color Urine Appearance Urine pH Ur Specific [place] Urine Protein Urine Glucose (UA) Urine Ketones Urine Blood Urine Nitrite Urine Bilirubin Urine Urobilinogen Ur Leukocyte Esterase Lyme Disease IgG Ab Lyme Disease IgM Ab SARS-CoV-2, RNA, NAAT 03/02/22 03/02/22 03/02/22 07:28 08:07 08:07 WBC RBC Hgb Hct MCV MCH MCHC RDW Std Deviation RDW Coeff of Phillip Plt Count MPV Immature Gran % (Auto) Neut % (Auto) Lymph % (Auto) [place] % (Auto) Eos % (Auto) Baso % (Auto) Neut # (Auto) Lymph # (Auto) [place] # (Auto) Eos # (Auto) Baso # (Auto) Immature Gran # (Auto) PT INR APTT 57.6 H* PTT Ratio 2.1 Sodium Potassium Chloride Carbon Dioxide Anion Gap BUN Creatinine Est Cr Clr Drug Dosing Est GFR ( Amer) Est GFR (Non-Af Amer) BUN/Creatinine Ratio Glucose POC Glucose 121 H Calcium Magnesium Total Bilirubin AST ALT Alkaline Phosphatase Troponin I High Sens Total Protein Albumin Globulin Albumin/Globulin Ratio Triglycerides Cholesterol LDL Cholesterol, Calc VLDL Cholesterol, Calc HDL Cholesterol Cholesterol/HDL Ratio TSH Cortisol AM Sample 17.80 Urine Color Urine Appearance Urine pH Ur Specific [place] Urine Protein Urine Glucose (UA) Urine Ketones Urine Blood Urine Nitrite Urine Bilirubin Urine Urobilinogen Ur Leukocyte Esterase Lyme Disease IgG Ab Lyme Disease IgM Ab SARS-CoV-2, RNA, NAAT Diagnostic Findings Chest x-ray obtained the time admission revealed mild cardiomegaly but no acute cardiopulmonary process. Echocardiogram obtained today revealed preserved LV systolic function. Mild mitral regurgitation. Mild left atrial dilation. Mild aortic root dilation. ECG Additional Comments: EKG obtained yesterday was available for review. This revealed sinus rhythm with complete heart block and a ventricular escape rhythm. EKGs were obtained in the emergency room which revealed a sinus rhythm in a Mobitz 1 conduction. There is a nonspecific interventricular conduction delay. PG Care Time/CCT Total # of Minutes Spent Total Time Spent with Patient: Total time spent is greater than 50% in coordination of care (as documented) at patient's floor/unit and/or counseling patient: Coding Level of Care Code 56511 Initial Inpt Care Lvl 3 Diagnoses Heart block I45.9 Hypertension I10 Elevated troponin R77.8 Ascending aortic aneurysm I71.2
--- NOTE | 2022-03-02 12:20 | Pre Anesthesia Assessment ---
Date of Service March 02, 2022 Pre Sedation Assessment Vital Signs Temp Pulse Pulse Resp BP BP Pulse Ox 03/02/22 11:51 37.1 C 57 L 18 210/83 H 96 03/02/22 07:36 37.3 C 49 L 20 199/67 H 95 03/02/22 04:46 36.8 C 47 L 16 183/76 H 95 03/02/22 00:31 44 L 03/01/22 22:52 37.2 C 49 L 18 207/97 H 96 03/01/22 22:01 54 L 14 187/96 H 96 03/01/22 22:00 45 L 17 95 03/01/22 21:50 52 L 21 03/01/22 21:01 49 L 16 183/90 H 96 03/01/22 21:00 45 L 19 183/90 H 95 03/01/22 20:32 57 L 14 225/79 H 93 03/01/22 20:30 54 L 14 95 03/01/22 20:29 46 L 20 96 03/01/22 20:19 64 12 95 03/01/22 19:18 36.8 C 58 L 18 221/88 H 97 Cardiovascular + bradycardic Respiratory + respiratory effort normal Pre-Sedation Airway Assessment Smoking Status: Never smoker Hx Sleep Apnea: No Hx Difficult Intubation: No Short, Thick Neck: No Thyromental Distance: > or= 3.5 Finger Breadths Oral Cavity: + WNL Mallampati Class: III ASA: ASA3 Procedure Planning Contraindications for Sedation: none Current Medications Reviewed: Yes Notes The planned sedation has been discussed with the patient. Informed Consent was obtained. I have identified the patient, determined the appropriateness of sedation and have assessed the patient immediately prior to the procedure. All medicine(s) and interventions are by my order.
--- NOTE | 2022-03-02 13:44 | Electrophysiology Report ---
Date of Service March 02, 2022 Electrophysiology Procedure Electrophysiology Procedure Report Procedure performed: Implantation of dual-chamber permanent pacemaker with left bundle pacing lead Staff hair designer: Martín Arthur MD Indication: The patient is a 81-year-old gentleman who presented to an outside facility with complete heart block. Based on the nature of his conduction disease he is felt to be a good candidate for permanent pacemaker due to symptomatic nonreversible AV node dysfunction. Dual-chamber device was selected as the patient is currently in sinus rhythm and wish to maintain AV synchrony. Procedure in detail: The patient was informed of the risks benefits and alternatives to the intended procedure and she wished to proceed. He was taken to the electrophysiology suite in a fasting state. A preoperative antibiotic had been administered. The patient was monitored electrocardiographically throughout today's procedure and conscious sedation was administered per protocol. The left upper pectoral area is prepped and draped in usual sterile fashion. This area was anesthetized using subcutaneous administration of a xylocaine solution. An incision was made at this site and carried down to the prepectoralis fascia using sharp dissection. Electrocautery was also employed for dissection as well as for hemostasis. A device pocket was fashioned tissues above the pectoralis muscle. Subsequent to this maneuver the left axillary vein was accessed using modified Seldinger technique. Sheath was placed over guidewire and use facilitate passage of the guiding catheter for mapping of the interventricular septum. Once an appropriate site was determined active-fixation was used in order to advance the lead into the interventricular septum. Adequate sensing and threshold parameters were obtained prior to removal of the guiding catheter. A second guidewire was used to facilitate passage of a sheath for passage of the right atrial lead. This was advanced using fluoroscopic guidance. Adequate sensing and threshold parameters were obtained prior to active-fixation of this lead to the endocardial surface. The proximal portion leads were then sutured the prepectoral fascia using nonabsorbable suture. The device pocket was irrigated with antibiotic solution. The leads were then attached to the device. The device and leads were then placed in the pocket and pocket was closed in 3 layers of absorbable suture. Steri-Strips and sterile dressing were applied. The device was tested noninvasively prior to conclusion the procedure. The patient tolerated procedure well there no immediate complications. Equipment used: New pulse generator: Medical Administrative Specialist [employer]. Model number: [id number] serial number [id number] Right atrial lead: Medical Administrative Specialist Medtronic. Model number: [id number] serial number [id number] Right ventricular lead: Medical Administrative Specialist [employer]tr[employer]. Model number: [id number] serial number [id number] Measured data: Right atrial lead: P waves measured 2.6 mV. Pacing threshold was 0.5 V at 0.4 ms with a pacing impedance of 551 ohms Right ventricular lead: R waves measured 17 mV. Pacing threshold was 0.5 V at 0.4 ms with a pacing impedance of 798 ohms Impression: Successful implantation of dual-chamber permanent pacemaker with left bundle pacing lead [facility] Electrophysiology codes Pacing Procedure 1: Pacin Insert/Replace Pacer A & V PG Moderate Sedation Codes Moderate Sedation Codes Procedure 1: Sedation/Anesthesia: 40599 Mod Sedation by the same physician;Init15 Min Child Age 5 & Up Procedure 2: Sedation/Anesthesia: 79187 Mod Sedation by the same physician; Ea Addit ional15 Minutes
--- NOTE | 2022-03-02 13:45 | Post Anesthesia Assessment ---
Date of Service March 02, 2022 Post Sedation Assessment Vital Signs Temp Pulse Pulse Resp BP BP Pulse Ox 03/02/22 12:20 226/89 H 03/02/22 11:51 37.1 C 57 L 18 210/83 H 96 03/02/22 07:36 37.3 C 49 L 20 199/67 H 95 03/02/22 04:46 36.8 C 47 L 16 183/76 H 95 03/02/22 00:31 44 L 03/01/22 22:52 37.2 C 49 L 18 207/97 H 96 03/01/22 22:01 54 L 14 187/96 H 96 03/01/22 22:00 45 L 17 95 03/01/22 21:50 52 L 21 03/01/22 21:01 49 L 16 183/90 H 96 03/01/22 21:00 45 L 19 183/90 H 95 03/01/22 20:32 57 L 14 225/79 H 93 03/01/22 20:30 54 L 14 95 03/01/22 20:29 46 L 20 96 03/01/22 20:19 64 12 95 03/01/22 19:18 36.8 C 58 L 18 221/88 H 97 Recovery Score Activity: Moves 4 extremities Respiration: Deep Breath/Cough Circulation: +/-20-49% PreAnes Value Consciousness: Arouseable (by name) Oxygen Saturation: > 92% On Room Air Discharge Sedation Level of Care: Fast Track Phase II Post Sedation Plan On clinical assessment, the patient appears to have tolerated the sedation without complications. Patient is recovering as anticipated. Patient will continue to be monitored by nursing and may be discharged when sedation discharge criteria are met per below protocol. Upon Completions of procedure up to 15 minutes continue every 5 minute vital signs and the P.A.R. score; then discharge to a Phase I or Fast Track to Phase II per the following guidelines: * Discharge Patient to appropriate Phase II area if PAR is 8 or greater or return to pre- procedure baseline. The post - procedure orders will be as directed. * If PAR score is less than 8 or not return to pre-procedure baseline then patient will follow Phase I monitoring till PAR is reached for Phase II. The Phase I may be done in procedure room or may call to secure a Phase I area. * If naloxone or flumazenil are used for reversal, hold in Phase I for continued monitoring from when last reversal dose was given for a minimum of 60 minutes or longer pending the nurse and/or physician discretion of patient condition before discharge to Phase II. Please call the Sedation Physician to re-evaluate and complete post-note for discharge to Phase II area. Do NOT discharge from procedure sedation or Phase 1 until post- sedation evaluation note is complete by procedure /sedation MD Sedation Discharge Instructions to be given to the patient at discharge to home.
[2022-03-02] MEDS: oxyCODONE HCL IR 5 MG TAB (IMMEDIATE RELEASE) PO PRN ×2 (14:54→20:13)
[2022-03-02] MEDS: ACETAMINOPHEN 325 MG TAB PO PRN (15:47)
[2022-03-02] MEDS ORDERED: DICLOFENAC SOD 1% GEL 100 GM TUBE EXT PRN (17:37)
[2022-03-02] MEDS ORDERED: METOPROLOL TARTRATE 1 MG/ML VIAL IV PRN (17:48)
--- NOTE | 2022-03-02 18:10 | Electrocardiogram Report ---
Test Reason : Blood Pressure : / mmHG Vent. Rate : 053 BPM Atrial Rate : 053 BPM P-R Int : 312 ms QRS Dur : 128 ms QT Int : 436 ms P-R-T Axes : 091 001 023 degrees QTc Int : 409 ms Sinus bradycardia with marked sinus arrhythmia with 1st degree A-V block Non-specific intra-ventricular conduction block Abnormal ECG Confirmed by Martín Arthur ([id number]) on 03/02/2022 6:10:28 PM Referred By: Chirag Ward Confirmed By:Saúl Arthur
--- NOTE | 2022-03-02 18:12 | Electrocardiogram Report ---
Test Reason : Blood Pressure : / mmHG Vent. Rate : 045 BPM Atrial Rate : 058 BPM P-R Int : 000 ms QRS Dur : 130 ms QT Int : 478 ms P-R-T Axes : 000 017 038 degrees QTc Int : 413 ms Sinus rhythm with Mobitz 1 AV block Non-specific intra-ventricular conduction block Abnormal ECG Confirmed by Martín Arthur ([id number]) on 03/02/2022 6:11:57 PM Referred By: Chirag Ward Confirmed By:Saúl Arthur
[2022-03-02] MEDS: MoRPHine SULFATE 2 MG/ML CARP IV PRN ×2 (18:19→20:58)
[2022-03-02] MEDS: ceFAZolin 2000MG 2,000 MG/15 ML SYR IV SCH (20:14)
[2022-03-03] MEDS: MoRPHine SULFATE 2 MG/ML CARP IV PRN ×3 (04:07→12:19)
[2022-03-03] MEDS: ACETAMINOPHEN 325 MG TAB PO PRN ×2 (04:07→09:14)
[2022-03-03] MEDS: ceFAZolin 2000MG 2,000 MG/15 ML SYR IV SCH ×2 (05:07→12:19)
[2022-03-03] MEDS: oxyCODONE HCL IR 5 MG TAB (IMMEDIATE RELEASE) PO PRN ×2 (06:31→10:19)
[2022-03-03 06:58] LABS: Basophils # (auto) 0.02 K/uL (0-0.2); Basophils % (auto) 0.3 %; Eosinophils # (auto) 0.28 K/uL (0-0.5); Eosinophils % (auto) 3.9 %; Hemoglobin 14.5 g/dL (14.0-18.0); Immature Granulocytes # (auto) 0.02 K/uL (0.00-0.02); Immature Granulocytes % (auto) 0.3 %; Lymphocytes # (auto) 2.26 K/uL (1.2-3.4); Lymphocytes % (auto) 31.6 %; Mean Corpuscular Hgb Conc 33.7 g/dL (32-36); Mean Corpuscular Volume 88.8 fL (80-100); Mean Platelet Volume 10.1 fL (7.4-10.4); Monocytes # (auto) 0.75 K/uL (0.11-0.59); Monocytes % (auto) 10.5 %; Neutrophils # (auto) 3.82 K/uL (1.4-6.5); Neutrophils % (auto) 53.4 %; Platelet Count 167 K/uL (130-400); RDW Coefficient of Variation 13.3 % (11.5-14.5); RDW Standard Deviation 43.3 fL (36.4-46.3); Red Blood Count 4.84 M/uL (4.7-6.1); White Blood Count 7.15 K/uL (4.8-10.8)
[2022-03-03 07:02] LABS: Partial Thromboplastin Time 27.5 Seconds (21.0-31.0)
[2022-03-03 07:22] LABS: Calcium 9.2 mg/dl (8.5-10.1); Creatinine Clr Calc Pharmacy 63.1 ml/min; Est GFR (African American) 62.5 ml/min; Est GFR (Non-African American) 53.9 ml/min; Magnesium 2.2 mg/dl (1.7-2.4); Potassium 4.3 mmol/L (3.5-5.1)
--- NOTE | 2022-03-03 08:37 | XRay Report ---
XR chest 2V PA/lateral HISTORY: Status left-sided pacemaker placement. EXACT TIME ORDERED Evaluate for pneumothorax and l COMPARISON: Chest 03/01/2021. FINDINGS: There is left-sided dual-chamber pacemaker. The leads appear intact. No pneumothorax. No pl eural effusions. The heart is mildly enlarged. No evidence for pulmonary edema. IMPRESSION: Left-sided dual-chamber pacemaker. No pneumothorax. ACT 112: Negative or not required by law. Electronically signed by: Hans Joseph M.D. 03/03/2022 8:36 AM
[2022-03-03] MEDS: TRIAMTERENE/HCTZ 37.5/25MG CAP PO SCH (09:14)
[2022-03-03] MEDS: CHOLECALCIFEROL 5,000 UNITS 125 MCG TAB PO SCH (09:14)
[2022-03-03] MEDS: ATORVASTATIN 10 MG TAB PO SCH (09:15)
[2022-03-03] MEDS: ASPIRIN 81 MG ECTAB PO SCH (09:15)
--- NOTE | 2022-03-03 10:27 | Cardiology Progress Note ---
Date of Service March 03, 2022 Assessment & Plan (1) Heart block: (2) Hypertension: (3) Elevated troponin: (4) Ascending aortic aneurysm: Plan: 1. Complete heart block: Doing well status post device implant. No evident complication. He should refrain from lifting left arm above the shoulder behind the neck for 6 weeks. He should keep the wound dry and Steri-Strips intact until follow-up in our clinic next week. I will arrange follow-up. 2. Normally functioning dual-chamber permanent pacemaker with left bundle pacing lead 3. Hypertension: Somewhat improved. He would probably benefit from a more aggressive antihypertensive regimen. At this point carvedilol could be used as there is no concern about bradycardia. In the setting of his known aortic aneurysm this may also be a good choice. 4. Elevated troponin: Likely related to his hypertension. I do not believe this represents an acute coronary syndrome. Admission and Anticipated Discharge Date Admission Date: March 01, 2022 Subjective This morning patient currently feeling well. He still has some residual discomfort at the device implant site. No other specific complaints. Review of Systems Review of Systems: Per HPI Physical Exam Physical Exam: Comfortable. Answer questions appropriately Device implant site appears to be healing well. No hematoma. Very minimal ecchymosis. No drainage. Results & Data ([facility]) Vital Signs (Past 12 Hours) Vital Signs Temp Pulse Pulse Resp BP Pulse Ox 03/03/22 09:06 60 180/89 H 03/03/22 07:34 60 03/03/22 06:22 36.6 C 60 18 166/85 H 96 03/03/22 03:53 37.1 C 60 18 193/91 H 96 Laboratory Results Abnormal Lab Results 03/03/22 03/03/22 03/03/22 06:28 06:28 06:28 WBC 7.15 RBC 4.84 Hgb 14.5 Hct 43.0 MCV 88.8 MCH 30.0 MCHC 33.7 RDW Std Deviation 43.3 RDW Coeff of Phillip 13.3 Plt Count 167 MPV 10.1 Immature Gran % (Auto) 0.3 Neut % (Auto) 53.4 Lymph % (Auto) 31.6 [place] % (Auto) 10.5 Eos % (Auto) 3.9 Baso % (Auto) 0.3 Neut # (Auto) 3.82 Lymph # (Auto) 2.26 [place] # (Auto) 0.75 H Eos # (Auto) 0.28 Baso # (Auto) 0.02 Immature Gran # (Auto) 0.02 APTT 27.5 PTT Ratio 1.0 Sodium 137 Potassium 4.3 Chloride 104 Carbon Dioxide 27 Anion Gap 6 BUN 24 H Creatinine 1.26 Est Cr Clr Drug Dosing 63.1 Est GFR ( Amer) 62.5 Est GFR (Non-Af Amer) 53.9 BUN/Creatinine Ratio 19.0 Glucose 103 H Calcium 9.2 Magnesium 2.2 Diagnostic Findings Chest x-ray demonstrates stable lead position without evidence of pneumothorax I performed a complete device interrogation which revealed normal function on the atrial and ventricular leads.
--- NOTE | 2022-03-03 10:47 | Discharge Summary ---
Date of Service March 03, 2022 Admission HPI Per Admitting Provider 81 YOM with medical history of: Ascending thoracic aorta (4.3 2019-4.2 2018), HLD, HTN, LVH, mild MR, obesity, BPH. Patient comes in today referred from his PCP for concern of bradycardia/heart block. Patient went to his PCP (Dr. Ward) for wellness check, where he was noted to have HR in the 40s, ECG at that time was concern for high grade block. He was sent to the EMD. In the EMD the patient had routine labs performed to include HScTNI and Lyme IGG/IGM. He had an ECG performed with appears 2nd degree type II. He remains asymptomatic, denies any dizziness, chest pain, or dyspnea. He states that he was out today mowing grass and on his tractor around the farm without any symptoms. He is also active outdoors and denies any anginal or cardiac symptoms. His Lyme is negative and HScTNI is 39- he is warm and well perfused with no other evidence of organ dysfunction, pulses are strong. He denies any new medications or any herbal supplements. He is not on rate reducing agents. Renal function is norm al TSH normal. Will admit to PCU- chest Xray, send repeat 2 hour HScTNI and am HScTNI and AM cortisol. Cardiology consulted. NPO after midnight He did follow with Cardiology back in [address] Marrufo for his Aneurysm, and palpitations HTN. His last ECHO was in 2019 with EF 60-65%, LVH and no wall abnormalities. Last ECG on file is 2009 with some inverted P waves and ectopic atrial beats noted. COVID test on admission is: NEGATIVE Principal Diagnosis Status post pacemaker placement Discharge Exam Constitutional WD/WN, vitals as above Eyes PERRL, conjunctivae normal, anicteric sclerae Neck trachea midline, no thyromegaly Respiratory normal respiratory effort, lungs clear to auscultation Cardiovascular Rate/Rhythm: regular rate and regular rhythm Heart Sounds: normal S1 and normal S2 Vessels: no JVD Extremities: no edema Gastrointestinal (Abdomen) normal bowel sounds, soft, nontender, no hepatosplenomegaly Musculoskeletal Head/Neck/Chest: normocephalic and head atraumatic Skin no rashes, warm and dry Neurologic moves all extremities Psychiatric A+Ox3, euthymic affect Discharge Data Allergies Allergy/AdvReac Type Severity Reaction Status Date / Time animal dander Allergy Unknown Unknown Verified 03/01/22 20:44 bupropion Allergy Unknown Unknown Verified 03/01/22 20:44 citalopram [From Celexa] Allergy Unknown Unknown Verified 03/01/22 20:44 doxycycline Allergy Unknown Unknown Verified 03/01/22 20:44 iodine Allergy Unknown Unknown Verified 03/01/22 20:44 sildenafil [From Viagra] Allergy Unknown Unknown Verified 03/01/22 20:44 Sulfa (Sulfonamide Allergy Unknown Unknown Verified 03/01/22 20:44 Antibiotics) Consultations 03/01/22 20:52 ED Decision to Admit Stat 03/01/22 22:21 Consult Cardiology Routine Procedures Performed Operation Date: 03/02/22 12:00 Actual Procedures p Pacer with A/V Leads (Dual) - Martín Arthur MD Ordered Studies 03/02/22 11:15 EP Lab Images for PACS ONCE Hospital Course (1) Heart block: Heart block 2nd degree - appears type II at this time, possibly complete - HR 40-50 with narrow qrs complex - occasional junctional escape - Denies any chest pain or angina type pain in the past - HSCTNI 39 initial evaluation, 101 6 hours later, 171 6 hours thereafter, deemed to be in relation to the patient's hypertension - ECHO ordered and reviewed: -Left ventricular systolic function is normal -Left ventricle is mildly dilated -Left atrium is mildly dilated -There is mild mitral regurgitation -Right ventricular systolic pressure is elevated at 30 to 40 mmHg -Borderline aortic root dilation - Cardiology consulted for evaluation of need for pacemaker. -Pacemaker placed on 03/02 without complication. -Do not lift arm above head for 6 weeks, no NSAIDs until cleared by cardiology. -Follow-up with cardiology in 1 week - Lyme negative - TSH normal - AM Cortisol within normal limits (2) Elevated troponin: HScTNI 39 with 2 hour reflex pending- -Could be secondary to bradycardia versus elevated blood pressures in the 200s systolic - trend through PM- no ST changes noted - however last ECG on file is from 2009 (3) Ascending aortic aneurysm: Last imaged in 2019 - continue with BP control following evaluation for HB - Continue statin - re-image when appropriate- inpatient or outpatient (4) Hypertension: As above- allow for some degree of hypertension with HB - continue with his triamterene/HCTZ -Consider adding additional medication in outpatient setting if elevated pressures do not normalize status post discharge (5) Hyperlipidemia: Continue with Atorvastatin 10mg daily - lipid panel in am -lipids are well controlled - Resume coq10 on discharge (6) BPH (benign prostatic hyperplasia): States symptoms controlled - continue with tamsulosin - no PSA in system- continue to follow up with PCP (7) GERD (gastroesophageal reflux disease): Continue with esomeprazole 20mg PO daily Total Time Total Time Spent Total Time Spent (In Minutes): 30 Discharge Plan Discharge Items Patient Disposition: Home - Self-Care Reason For Visit: HEART BLOCK Discharge Diagnosis: Status post pacemaker placement Activity: Per Instructions section Non-emergency contact: Primary Care Provider and [employer] Call non-emergency contact if: you have any medication questions Follow-up/Referrals: Martín Arthur MD [Physician] - Chirag Ward MD [Primary Care Provider] - Diet: Heart Healthy Addtl Attending Provider Instructions: You were referred to the hospital by her primary care provider's office for the concern of a slow heart rate. While you were here it was determined that you have a cardiac abnormality called heart block. This is because when there is a miscommunication in the signals from the top of your heart to the ventricles and the bottom of your heart. Fortunately you were asymptomatic and actually felt well, however, your rhythm had a high risk for eventually turning into complete heart block. Because this you were evaluated by our cardiology team who felt that you needed to have a pacemaker placed. This procedure was performed for which she tolerated well. Currently your heart rate has been beating at the lowest of 60 bpm whereas before your heart rate was at the lowest in the high 20s. He tolerated the procedure well and at this time we feel it is safe for you to be discharged home. You will follow-up with the home appliance tech within 1 week and an appointment will be made for you and we want for you to follow-up with your primary care provider after Chirag Ward within 1 week as well. There are some restrictions while you are healing from your procedure to have the pacemaker placed: Please do not lift your arm above your head until instructed to do so by cardiology, no NSAIDs while you are pacemaker is healing in place, and no contact sports. Please take Tylenol for your postsurgical pain. You can still take your once daily aspirin per cardiology. Additionally your blood pressure was elevated while you were hospitalized, this could be due to the stress of the procedure as well as your heart rate being low and your body compensating as we discussed. It seems you had good blood pressure control prior to your hospitalization, so an additional blood pressure medication will not be given at this time, however, please bring it up to your follow-up appointment your primary care provider visit. It has been a pleasure to be part of your care and we wish you the best in both your health and recovery. Pending Studies at Discharge: No Stand-Alone Forms: My [facility], Smoking Cessation Medications and DC Order Prescriptions: Continued tadalafil 5 mg tablet 5 mg PO DAILY PRN (Reason: sexual activity) RF: 0 esomeprazole magnesium 20 mg capsule,delayed release(DR/EC) 20 mg PO DAILY PRN (Reason: Heartburn) RF: 0 albuterol sulfate 90 mcg/actuation HFA aerosol inhaler 2 puffs inhalation Q4H PRN (Reason: shortness of breath or wheezing) RF: 0 tamsulosin 0.4 mg capsule 0.4 mg PO DAILY Qty: 30 RF: 0 atorvastatin 10 mg tablet 10 mg PO DAILY RF: 0 ascorbic acid (vitamin C) [Vitamin C] 1,000 mg Tablet 1 g PO DAILY RF: 0 aspirin [Aspirin Low Dose] 81 mg Tablet,Delayed Release (Dr/Ec) 81 mg PO DAILY RF: 0 cholecalciferol (vitamin D3) [Vitamin D3] 125 mcg (5,000 unit) Tablet 125 mcg PO DAILY RF: 0 coQ10 (ubiquinol) 200 mg Capsule 200 mg PO DAILY RF: 0 PreserVision AREDS-2 250-90-40-1 mg Capsule 1 tab PO BID RF: 0 triamterene-hydrochlorothiazid 37.5-25 mg capsule 1 cap PO DAILY RF: 0 Discharge Orders: Discharge Order (Routine); Ordered 03/03/22 Ordered By: Gerson Dodson/Other Patient Handouts: Pacemakers, Living with a Pacemaker Admission Data Admit Date/Time: 03/01/22 21:50 Attending Provider: Marcelino Boles Admit Provider: Kerri Hughes Primary Care Provider: Chirag Ward Other Providers: Kerri Hughes ; Martín Arthur Other Interventions: Discharge Summary Assessment (RN) Last Done: 03/03/22 12:31 Supervising Physician Co-Signing Physician Notes Patient seen and examined with PGY-1 Dr. Purvis. Agree with history exam findings, assessment and plan of care as outlined. In brief, 81 year old male with hx of thoracic aortic aneurysm, HTN, hyperlipidemia, BPH, GERD admitted with heart block. Feels a bit sore today in the area of the pacemaker. No chest pain, dyspnea. No nausea, vomiting. VS and nursing notes reviewed. Tele reviewed. Heart with regular rate and rhythm. No edema. Lungs are clear to auscultation in all lung valente. Labs reviewed. 1. Complete heart block. Pacemaker placed on 03/02/2022. TTE with normal left ventricular systolic function, mildly dilated left ventricle, mildly dilated left atrium, mild mitral regurgitation, right ventricular systolic pressure is elevated at 30-40mmHg. 2. Elevated troponin. Due to demand ischemia. 3. Ascending aortic aneurysm. Blood pressure control. 4. HTN. Continue HCTZ-triamterene. 5. HLD. Continue atorvastatin 10mg. holding coQ10. 6. BPH. Continue with tamsulosin. Dispo: discharge home today. I personally spent 20 minute discharge planning for this patient. He will follow up with cardiology and PCP.
--- NOTE | 2022-03-03 17:55 | Electrocardiogram Report ---
Test Reason : Blood Pressure : / mmHG Vent. Rate : 060 BPM Atrial Rate : 060 BPM P-R Int : 232 ms QRS Dur : 142 ms QT Int : 460 ms P-R-T Axes : 000 -36 089 degrees QTc Int : 460 ms AV dual-paced rhythm with prolonged AV conduction Abnormal ECG When compared with ECG of 02-MAR-2022 05:09, (unconfirmed) Electronic ventricular pacemaker has replaced Wide QRS rhythm Confirmed by Martín Arthur ([id number]) on 03/03/2022 5:55:28 PM Referred By: Chirag Ward Confirmed By:Saúl Arthur
--- NOTE | 2022-03-03 18:10 | Electrocardiogram Report ---
Test Reason : Blood Pressure : / mmHG Vent. Rate : 060 BPM Atrial Rate : 060 BPM P-R Int : 250 ms QRS Dur : 126 ms QT Int : 434 ms P-R-T Axes : 000 -24 077 degrees QTc Int : 434 ms AV dual-paced rhythm with prolonged AV conduction Abnormal ECG When compared with ECG of 02-MAR-2022 14:02, (unconfirmed) No significant change was found Confirmed by Martín Arthur ([id number]) on 03/03/2022 6:09:52 PM Referred By: Chirag Ward Confirmed By:Saúl Arthur
== END 2022-03-03 13:15 | disposition home or self-care (01) | DRG 243 ==
LOC: ED 19:12 → 2S 21:50 → SUATTDRO 21:50 → 2S 22:11